=== PATIENT | female | born 1980 | race Caucasian/White ===

== ENCOUNTER 2019-08-07 07:27 | Inpatient (IN) | payer BC ==
[2019-08-07] MEDS ORDERED: Butorphanol 1 MG/ML SDV IVPUSH PRN (08:05)
[2019-08-07] MEDS ORDERED: Tranexamic Acid 1,000 MG in Sodium Chloride 0.9% 100 ML IV PRN (08:05)
[2019-08-07] MEDS ORDERED: Misoprostol 200 MCG Tab PO PRN (08:05)
[2019-08-07] MEDS ORDERED: Water For Irrigation,Sterile 1,000 ML Container IRR PRN (08:05)
[2019-08-07] MEDS ORDERED: Carboprost Tromethamine 250 MCG/1 ML Amp IM PRN (08:05)
[2019-08-07] MEDS ORDERED: Ampicillin 2 GM in Sodium Chloride 0.9% 100 ML IV ONE (08:05)
[2019-08-07] MEDS ORDERED: Sodium Chloride 0.9% 10 ML SDV IV PRN (08:05)
[2019-08-07] MEDS ORDERED: Lidocaine 1% 50 ML MDV INJECT PRN (08:05)
[2019-08-07] MEDS ORDERED: Methylergonovine 0.2 MG/1 ML Amp IM PRN (08:05)
[2019-08-07] MEDS ORDERED: Sodium Chloride 0.9% 10 ML Syringe FLUSH PRN (08:05)
[2019-08-07] MEDS ORDERED: Nalbuphine 10 MG/1 ML Vial IVPUSH PRN (08:05)
[2019-08-07] MEDS ORDERED: Sodium Chloride 0.9% 2.5 ML Syringe FLUSH PRN (08:05)
[2019-08-07] MEDS ORDERED: Oxytocin/0.9 % Sodium Chloride 30 UNIT/500 ML BAG IV SCH (08:15)
[2019-08-07] MEDS: Lactated Ringers 1,000 ML IV SCH ×2 (08:29→10:00)
[2019-08-07] MEDS ORDERED: Ropivacaine HCl/PF 100 ML ONE (09:07)
[2019-08-07] MEDS ORDERED: fentaNYL 100 MCG/2 ML SDV ONE (09:07)
--- NOTE | 2019-08-07 09:32 | PCM.PREANE ---
Preanesthetic Assessment - Anesthesia/Transfusion/Family Hx Anesthesia History: Prior Anesthesia Without Reaction Family History of Anesthesia Reaction: No Transfusion History: No Prior Transfusion(s) - Physical Assessment NPO Status Date: 08/07/19 NPO Status Time: 08:00 Height: 1.68 m Weight: 74.843 kg ASA Class: 1 - Lab Values: Laboratory Last Values WBC 11.38 K/uL (4.0-11.0) H 08/07/19 08:20 RBC 4.27 M/uL (4.30-5.90) L 08/07/19 08:20 Hgb 12.3 g/dL (12.0-16.0) 08/07/19 08:20 Hct 37.2 % (36.0-46.0) 08/07/19 08:20 MCV 87.1 fL (80.0-98.0) 08/07/19 08:20 MCH 28.8 pg (27.0-32.0) 08/07/19 08:20 MCHC 33.1 g/dL (31.0-37.0) 08/07/19 08:20 RDW Std Deviation 41.9 fl (28.0-62.0) 08/07/19 08:20 RDW Coeff of Tatyana 13 % (11.0-15.0) 08/07/19 08:20 Plt Count 224 K/uL (150-400) 08/07/19 08:20 MPV 10.80 fL (7.40-12.00) 08/07/19 08:20 Nucleated RBC % 0.0 /100WBC 08/07/19 08:20 Nucleated RBCs # 0 K/uL 08/07/19 08:20 Blood Type O POSITIVE 08/07/19 08:20 Antibody Screen NEGATIVE 08/07/19 08:20 - Allergies Allergies/Adverse Reactions: Allergies Allergy/AdvReac Type Severity Reaction Status Date / Time No Known Allergies Allergy Verified 12/25/16 03:32 - Acknowledgements Anesthesia Type Planned: Epidural Pt an Appropriate Candidate for the Planned Anesthesia: Yes Alternatives and Risks of Anesthesia Discussed w Pt/Guardian: Yes Pt/Guardian Understands and Agrees with Anesthesia Plan: Yes PreAnesthesia Questionnaire HEENT History: Reports: None Cardiovascular History: Reports: None Respiratory History: Reports: None Gastrointestinal History: Reports: Other (See Below) Other Gastrointestinal History: heartburn with Genitourinary History: Reports: None 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: Musculoskeletal History: Reports: Fracture Neurological History: Reports: None Psychiatric History: Reports: None Endocrine/Metabolic History: Reports: None Hematologic History: Reports: None Immunologic History: Reports: None Oncologic (Cancer) History: Reports: None Dermatologic History: Reports: None - Infectious Disease History Infectious Disease History: Reports: Chicken Pox, Human Papilloma Virus (HPV) - Past Surgical History HEENT Surgical History: Reports: None GI Surgical History: Reports: None Female Surgical History: Reports: Breast Biopsy Musculoskeletal Surgical History: Reports: None - SUBSTANCE USE Smoking Status *Q: Never Smoker Second Hand Smoke Exposure: No Recreational Drug Use History: No - HOME MEDS Home Medications: Home Meds Pnv No.95/Ferrous Fum/Folic AC [ Caplet] 1 tab PO DAILY 08/07/19 [ History] - CURRENT (IN HOUSE) MEDS Current Meds: Current Medications Butorphanol Tartrate (Stadol) 1 mg IVPUSH Q1H PRN PRN Reason: Pain Carboprost Tromethamine (Hemabate Ds) 250 mcg IM ASDIRECTED PRN PRN Reason: Post Hemorrhage Lactated Ringer's (Ringers, Lactated) 1,000 mls @ 150 mls/hr IV ASDIRECTED [facility] Last Admin: 08/07/19 08:29 Dose: 150 mls/hr Oxytocin/Sodium Chloride (Oxytocin 30 Unit/500 Ml-Ns) 30 unit in 500 mls @ 500 mls/hr IV TITRATE [facility] Tranexamic Acid 1,000 mg/ (Sodium Chloride) 110 mls @ 660 mls/hr IV ONETIME PRN PRN Reason: Bleeding Lidocaine HCl (Xylocaine 1%) 50 ml INJECT ONETIME PRN PRN Reason: Laceration repair Methylergonovine Maleate (Methergine) 0.2 mg IM ASDIRECTED PRN PRN Reason: Post Hemorrhage Misoprostol (Cytotec) 200 mcg PO ONETIME PRN PRN Reason: Post Hemorrhage Nalbuphine HCl (Nubain) 10 mg IVPUSH Q1H PRN PRN Reason: Pain (severe 7-10) Sodium Chloride (Saline Flush) 10 ml FLUSH ASDIRECTED PRN PRN Reason: Keep Vein Open Sodium Chloride (Saline Flush) 2.5 ml FLUSH ASDIRECTED PRN PRN Reason: Keep Vein Open Sodium Chloride (Normal Saline) 10 ml IV ASDIRECTED PRN PRN Reason: IV Use Sterile Water (Sterile Water For Irrigation) 1,000 ml IRR ASDIRECTED PRN PRN Reason: delivery Discontinued Medications Fentanyl (Sublimaze) Confirm Administered Dose 100 mcg .ROUTE .[employer] ONE Stop: 08/07/19 09:08 Ampicillin Sodium 2 gm/ Sodium (Chloride) 100 mls @ 200 mls/hr IV ONETIME ONE Stop: 08/07/19 08:34 Last Admin: 08/07/19 08:30 Dose: 200 mls/hr Ropivacaine (Naropin 0.2%) Confirm Administered Dose 100 mls @ as directed .ROUTE .[employer] ONE Stop: 08/07/19 09:08
--- NOTE | 2019-08-07 09:36 | PCM.PRNOTE ---
- Free Text/Narrative Note: Anes Note Patient requests epidural for L&D. Sitting position, Level L3-L4 midline approach. Sterile technique, clhoraprep scrube to lumbar area. Sterile fenestrated drape applied. Epidural spce easily achieved single attmept using LEVAR technique. LEVAR at 3 cm. Cath threaded 5 cm with ease. Secured at skin at 9 cm using sterile clear adhesive dressing. 0912 test 3 cc 1.5% lido with epi negative. 0917 loading doses 10 cc 0.2% ropivicaine with 1 mcg cc fentanyl in slow divided doses. 09 Pump strated with 90 cc same solution, at 8 cc hour with 6 cc q 20 min prn bolus. Michelle well. 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
[2019-08-07] MEDS ORDERED: Ampicillin 1 GM in Sodium Chloride 0.9% 50 ML IV SCH (12:45)
[2019-08-07] MEDS ORDERED: Ampicillin 1 GM AdvVial IV ONE (12:46)
[2019-08-07] MEDS ORDERED: Sodium Chloride 0.9% 50 ML ONE (12:47)
[2019-08-07] MEDS ORDERED: Lanolin 100% Cream 7 GM Tube TOP PRN (13:52)
[2019-08-07] MEDS ORDERED: oxyCODONE 5 MG Tab PO PRN (13:52)
[2019-08-07] MEDS ORDERED: Witch Hazel Medicated Pads 40/Jar TOP PRN (13:52)
[2019-08-07] MEDS ORDERED: Acetaminophen 500 MG Tab PO PRN (13:52)
[2019-08-07] MEDS ORDERED: Ibuprofen 400 MG Tab PO PRN (13:52)
[2019-08-07] MEDS ORDERED: Ibuprofen 800 MG Tab PO PRN (13:52)
[2019-08-07] MEDS ORDERED: Ondansetron 4 MG/2 ML SDV IVPUSH PRN (13:52)
[2019-08-07] MEDS ORDERED: Docusate Sodium 100 MG Cap PO PRN (13:52)
[2019-08-07] MEDS ORDERED: Benzocaine/Menthol 20%-0.5% Spray 78 GM Cannister TOP PRN (13:52)
[2019-08-07] MEDS ORDERED: Bisacodyl 10 MG Supp RECTAL PRN (13:52)
--- NOTE | 2019-08-07 14:00 | PCM.OPNOTE ---
- General Post-Op/Procedure Note Date of Surgery/Procedure: 08/07/19 Operative Procedure(s): /1st MLL repaired Findings: Viable male APGARs 9, 9 weight pending Spontaneous delivery intact placenta with 3V cord Pre Op Diagnosis: 39 week IUP. Labor Post-Op Diagnosis: Same Anesthesia Technique: Epidural Primary Surgeon: Ekta Patel EBL in mLs: 250 Complications: none known Condition: Good Free Text/Narrative:: Dictation [id number]
--- NOTE | 2019-08-07 14:59 | OR ---
SURGEON: Ekta Patel M.D. DATE OF PROCEDURE: 08/07/2019 PREOPERATIVE DIAGNOSES: 1. A 39 weeks' intrauterine . 2. Active labor. POSTOPERATIVE DIAGNOSES: 1. A 39 weeks' intrauterine . 2. Active labor. PROCEDURE: Spontaneous vaginal delivery, first-degree midline laceration repaired. PRIMARY SURGEON: Ekta Patel MD. ANESTHESIA: Epidural. ESTIMATED BLOOD LOSS: 250 mL. COMPLICATIONS: None known. FINDINGS: Viable male. scores 9 at one minute and 9 at five minutes. Weight is pending. Spontaneous delivery. Intact placenta with a 3-vessel cord. DISPOSITION: Te patient in LDRP, to nursery. PROCEDURE DETAILS: Jayna is a 39-year-old, G2, P1, at 39 weeks' gestational age who presents with regular contractions throughout the night, in the client support consultant hours. Upon initial presentation, she was found to be 4 to 5 cm, 80% effaced, and minus 2 station. Therefore, she was admitted, routine labs drawn, IV hydration was initiated. She is group B beta strep positive. Therefore, a group B beta strep prophylaxis was also initiated. Category 1 heart tones. The patient became increasingly uncomfortable, underwent regional anesthesia in the form of epidural. At that time, was found to be 6 cm. At approximately 12:45, noticed that there was some head compression with the heart rate tracing with early deceleration, and on examination, she was found to be complete, 100% effaced, 0 station. Membranes did not appear to be intact at that time Guestimating they ruptured somewhere between 10:30 and 11:30 a.m. The patient then began pushing efforts, pushed effectively to a +2 station. I was called for delivery. Upon my arrival, the patient placed in modified dorsal lithotomy position, was prepped and draped in the usual aseptic manner. Continued with pushing efforts, pushed readily to a +4 station. I was able deliver infant's head atraumatically spontaneously, followed by anterior shoulder, posterior shoulder, and remainder of body. The infant's oropharynx and nares were bulb suctioned. Infant was handed off to his mother with attending nursing staff at the side. After a delay, cord was clamped x2 and cut. Cord arterial, cord venous, cord blood sampling obtained. Light pressure was applied while the placenta was delivered spontaneously intact. Vigorous fundal uterine massage was then applied while 30 units of Pitocin was delivered in 500 mL of IV fluid. Upon inspection of cervix, vaginal sidewalls, and perineum, there was found to be a first-degree midline laceration, repaired using 3-0 Vicryl in the usual fashion. Upon inspection of cervix, vaginal sidewalls, perineum, these were found to be intact. The patient had tolerated the procedure well overall. She will remain in LDRP in stable condition, infant to nursery. KRISTINA / LUIS ALBERTO /[id number] STAN
[2019-08-07] MEDS: Acetaminophen 500 MG Tab PO PRN (20:16)
[2019-08-08] MEDS: Acetaminophen 500 MG Tab PO PRN ×2 (06:33→10:06)
--- NOTE | 2019-08-08 07:49 | PCM.PNPP ---
- General Info Date of Service: 08/08/19 Functional Status: Reports: Pain Controlled, Tolerating Diet, Ambulating, Urinating - Review of Systems General: Reports: No Symptoms HEENT: Reports: No Symptoms Pulmonary: Reports: No Symptoms Cardiovascular: Reports: No Symptoms Gastrointestinal: Reports: No Symptoms Genitourinary: Reports: No Symptoms Musculoskeletal: Reports: No Symptoms Skin: Reports: No Symptoms Neurological: Reports: No Symptoms Psychiatric: Reports: No Symptoms - General Info Date of Service: 08/08/19 - Patient Data Vital Signs - Most Recent: Last Vital Signs Temp 36.2 C 08/08/19 04:21 Pulse 61 08/08/19 04:21 Resp 16 08/08/19 04:21 BP 100/61 08/08/19 04:21 Pulse Ox 96 08/08/19 04:21 Weight - Most Recent: 74.843 kg Lab Results - Last 24 Hours: Laboratory Results - last 24 hr 08/07/19 08/07/19 08/07/19 Range/Units 08:20 08:20 13:34 WBC 11.38 H (4.0-11.0) K/uL RBC 4.27 L (4.30-5.90) M/uL Hgb 12.3 (12.0-16.0) g/dL Hct 37.2 (36.0-46.0) % MCV 87.1 (80.0-98.0) fL MCH 28.8 (27.0-32.0) pg MCHC 33.1 (31.0-37.0) g/dL RDW Std Deviation 41.9 (28.0-62.0) fl RDW Coeff of Tatyana 13 (11.0-15.0) % Plt Count 224 (150-400) K/uL MPV 10.80 (7.40-12.00) fL Nucleated RBC % 0.0 /100WBC Nucleated RBCs # 0 K/uL Cord ABG pH 7.301 (7.18-7.38) Cord ABG Base Excess -4 (-10--2) Cord VBG pH 7.330 (7.25-7.45) Cord VBG Base Excess -3 (-10--2) Blood Type O POSITIVE Antibody Screen NEGATIVE 08/08/19 Range/Units 05:50 WBC (4.0-11.0) K/uL RBC (4.30-5.90) M/uL Hgb 11.2 L (12.0-16.0) g/dL Hct 34.6 L (36.0-46.0) % MCV (80.0-98.0) fL MCH (27.0-32.0) pg MCHC (31.0-37.0) g/dL RDW Std Deviation (28.0-62.0) fl RDW Coeff of Tatyana (11.0-15.0) % Plt Count (150-400) K/uL MPV (7.40-12.00) fL Nucleated RBC % /100WBC Nucleated RBCs # K/uL Cord ABG pH (7.18-7.38) Cord ABG Base Excess (-10--2) Cord VBG pH (7.25-7.45) Cord VBG Base Excess (-10--2) Blood Type Antibody Screen Med Orders - Current: Current Medications Acetaminophen (Tylenol Extra Strength) 500 mg PO Q4H PRN PRN Reason: Pain Last Admin: 08/08/19 06:33 Dose: 500 mg Acetaminophen (Tylenol Extra Strength) 1,000 mg PO Q4H PRN PRN Reason: Pain Benzocaine/Menthol (Dermoplast Pain Relief 20%-0.5% [place]) 78 gm TOP ASDIRECTED PRN PRN Reason: Perineal Comfort Measure Bisacodyl (Dulcolax) 10 mg RECTAL ONETIME PRN PRN Reason: Constipation Carboprost Tromethamine (Hemabate Ds) 250 mcg IM ASDIRECTED PRN PRN Reason: Post Hemorrhage Docusate Sodium (Colace) 100 mg PO BID PRN PRN Reason: Constipation Emollient Ointment (Lansinoh Hpa) 0 gm TOP ASDIRECTED PRN PRN Reason: Sore Nipples Lactated Ringer's (Ringers, Lactated) 1,000 mls @ 150 mls/hr IV ASDIRECTED DANIEL Last Admin: 08/07/19 10:00 Dose: 150 mls/hr Oxytocin/Sodium Chloride (Oxytocin 30 Unit/500 Ml-Ns) 30 unit in 500 mls @ 500 mls/hr IV TITRATE DANIEL Tranexamic Acid 1,000 mg/ (Sodium Chloride) 110 mls @ 660 mls/hr IV ONETIME PRN PRN Reason: Bleeding Ibuprofen (Motrin) 400 mg PO Q4H PRN PRN Reason: Pain Ibuprofen (Motrin) 800 mg PO Q6H PRN PRN Reason: Pain Lidocaine HCl (Xylocaine 1%) 50 ml INJECT ONETIME PRN PRN Reason: Laceration repair Methylergonovine Maleate (Methergine) 0.2 mg IM ASDIRECTED PRN PRN Reason: Post Hemorrhage Ondansetron HCl (Zofran) 4 mg IVPUSH Q6H PRN PRN Reason: Nausea/Vomiting Oxycodone HCl (Oxycodone) 5 mg PO Q2H PRN PRN Reason: Pain Sodium Chloride (Saline Flush) 10 ml FLUSH ASDIRECTED PRN PRN Reason: Keep Vein Open Sodium Chloride (Saline Flush) 2.5 ml FLUSH ASDIRECTED PRN PRN Reason: Keep Vein Open Sodium Chloride (Normal Saline) 10 ml IV ASDIRECTED PRN PRN Reason: IV Use Sterile Water (Sterile Water For Irrigation) 1,000 ml IRR ASDIRECTED PRN PRN Reason: delivery Witch Rosamaria (Tucks) 1 pad TOP ASDIRECTED PRN PRN Reason: comfort care Discontinued Medications Ampicillin Sodium (Ampicillin) Confirm Administered Dose 1 gm IV .STK-MED ONE Stop: 08/07/19 12:47 Butorphanol Tartrate (Stadol) 1 mg IVPUSH Q1H PRN PRN Reason: Pain Fentanyl (Sublimaze) Confirm Administered Dose 100 mcg .ROUTE .STK-[employer] ONE Stop: 08/07/19 09:08 Ampicillin Sodium 2 gm/ Sodium (Chloride) 100 mls @ 200 mls/hr IV ONETIME ONE Stop: 08/07/19 08:34 Last Admin: 08/07/19 08:30 Dose: 200 mls/hr Ropivacaine (Naropin 0.2%) Confirm Administered Dose 100 mls @ as directed .ROUTE .STK-MED ONE Stop: 08/07/19 09:08 Ampicillin Sodium 1 gm/ Sodium (Chloride) 50 mls @ 100 mls/hr IV Q4H DANIEL Last Admin: 08/07/19 12:45 Dose: 100 mls/hr Sodium Chloride (Normal Saline) Confirm Administered Dose 50 mls @ as directed .ROUTE .STK-MED ONE Stop: 08/07/19 12:48 Misoprostol (Cytotec) 200 mcg PO ONETIME PRN PRN Reason: Post Hemorrhage Nalbuphine HCl (Nubain) 10 mg IVPUSH Q1H PRN PRN Reason: Pain (severe 7-10) - Interaction Support Person: - Recovery Exam Fundal Tone: Firm Fundal Level: At Umbilicus Fundal Placement: Midline Lochia Amount: Scant Lochia Color: Rubra/Red Perineum Description: Intact, Minimal Bruising/Swelling Episiotomy/Laceration: Approximated Bladder Status: Voiding - Exam General: Alert HEENT: Pupils Equal Neck: Supple Lungs: Clear to Auscultation, Normal Respiratory Effort Cardiovascular: Regular Rate, Regular Rhythm GI/Abdominal Exam: Normal Bowel Sounds Neurological: No New Focal Deficit Psy/Mental Status: Alert - Problem List & Annotations (1) Vaginal delivery SNOMED Code(s): 443530393 Code(s): O80 - ENCOUNTER FOR FULL-TERM UNCOMPLICATED DELIVERY Status: Acute Current Visit: No - Problem List Review Problem List Initiated/Reviewed/Updated: Yes - Assessment Assessment:: 39yo s/p PPD 1 , - Plan Plan:: Discharge home Routine
--- NOTE | 2019-08-08 08:57 | PCM48HPAN ---
Post Anesthesia Note - EVALUATION WITHIN 48HRS OF ANESTHETIC Vital Signs in Normal Range: Yes Patient Participated in Evaluation: Yes Respiratory Function Stable: Yes Airway Patent: Yes Cardiovascular Function Stable: Yes Hydration Status Stable: Yes Pain Control Satisfactory: Yes Nausea and Vomiting Control Satisfactory: Yes Mental Status Recovered: Yes Vital Signs: Last Vital Signs Temp 36.2 C 08/08/19 04:21 Pulse 61 08/08/19 04:21 Resp 16 08/08/19 04:21 BP 100/61 08/08/19 04:21 Pulse Ox 96 08/08/19 04:21
[2019-08-08 10:33] VITALS: BP 114/54; PULSE 75
== END 2019-08-08 16:20 | disposition home or self-care (01) | DRG 560 ==
LOC: MW.OBCHECK 07:27 → MW.OB 07:29 → OBSVTOIN 13:34 → MW.OBCHECK 13:59 → MW.OB 17:14
PROVIDERS: ADMIT Obstetrics & Gynecology; ATTEND Obstetrics & Gynecology
PROC: 10E0XZZ Delivery of Products of Conception, External Approach (ICD-10-PCS; principal; 2019-08-07)
PROC: 0HQ9XZZ Repair Perineum Skin, External Approach (ICD-10-PCS; 2019-08-07)
PROC: 3E0R3BZ Introduction of Anesthetic Agent into Spinal Canal, Percutaneous Approach (ICD-10-PCS; 2019-08-07)
PROC: 30233N1 Transfusion of Nonautologous Red Blood Cells into Peripheral Vein, Percutaneous Approach (ICD-10-PCS; 2019-08-07)
DX: O99.824 Streptococcus B carrier state complicating childbirth (principal); O70.0 First degree perineal laceration during delivery; Z3A.39 39 weeks gestation of pregnancy; Z37.0 Single live birth
CPT/HCPCS: 01967; 36415; 51702; 59025; 59409; 82803; 85014; 85018; 85027; 86593; 86850; 86900; 86901; A9270-GY; J0290; J2795; J3010; J7050; J7120

== ENCOUNTER 2022-06-23 05:54 | Inpatient (IN) | payer BC ==
[2022-06-23] MEDS ORDERED: Carboprost Tromethamine 250 MCG/1 ML Amp IM PRN (06:37)
[2022-06-23] MEDS ORDERED: Sodium Chloride 0.9% 2.5 ML Syringe FLUSH PRN (06:37)
[2022-06-23] MEDS ORDERED: Lidocaine 1% 50 ML MDV INJECT PRN (06:37)
[2022-06-23] MEDS ORDERED: Methylergonovine 0.2 MG/1 ML Amp IM PRN (06:37)
[2022-06-23] MEDS ORDERED: Water For Irrigation,Sterile 1,000 ML Container IRR PRN (06:37)
[2022-06-23] MEDS ORDERED: Sodium Chloride 0.9% 10 ML Syringe FLUSH PRN (06:37)
[2022-06-23] MEDS ORDERED: Misoprostol 200 MCG Tab PO PRN (06:37)
[2022-06-23] MEDS ORDERED: Tranexamic Acid 1,000 MG in Sodium Chloride 0.9% 100 ML IV PRN (06:37)
[2022-06-23] MEDS ORDERED: Butorphanol 1 MG/ML SDV IVPUSH PRN (06:37)
[2022-06-23] MEDS ORDERED: Ondansetron 4 MG/2 ML SDV IVPUSH PRN (06:37)
[2022-06-23] MEDS ORDERED: Sodium Chloride 0.9% 20 ML SDV IV PRN (06:37)
[2022-06-23] MEDS ORDERED: Oxytocin/0.9 % Sodium Chloride 30 UNIT/500 ML BAG IV SCH (06:45)
[2022-06-23] MEDS ORDERED: Ampicillin 2 GM in Sodium Chloride 0.9% 100 ML IV ONE (07:00)
[2022-06-23] MEDS: Lactated Ringers 1,000 ML IV SCH ×2 (07:00→12:48)
[2022-06-23] MEDS ORDERED: ePHEDrine 50 MG/ML SDV IVPUSH PRN ×2 (08:52)
[2022-06-23] MEDS ORDERED: Phenylephrine HCl In 0.9% NaCl 1 MG/10 ML Vial IVPUSH PRN (08:52)
[2022-06-23] MEDS ORDERED: Ropivacaine HCl/PF 400 MG in Premix Bag 1 BAG EPIDUR SCH (09:00)
[2022-06-23] MEDS ORDERED: Phenylephrine HCl In 0.9% NaCl 1 MG/10 ML Vial IVPUSH SCH (09:00)
[2022-06-23] MEDS ORDERED: Ampicillin 1 GM in Sodium Chloride 0.9% 50 ML IV SCH (11:00)
[2022-06-23] MEDS ORDERED: Lanolin 100% Cream 7 GM Tube TOP PRN (15:19)
[2022-06-23] MEDS ORDERED: Ibuprofen 400 MG Tab PO PRN (15:19)
[2022-06-23] MEDS ORDERED: Acetaminophen 500 MG Tab PO PRN (15:19)
[2022-06-23] MEDS ORDERED: oxyCODONE 5 MG Tab PO PRN (15:19)
[2022-06-23] MEDS ORDERED: Witch Hazel Medicated Pads 40/Jar TOP PRN (15:19)
[2022-06-23] MEDS ORDERED: Benzocaine/Menthol 20%-0.5% Spray 78 GM Cannister TOP PRN (15:19)
[2022-06-23] MEDS ORDERED: Docusate Sodium 100 MG Cap PO PRN (15:19)
[2022-06-23] MEDS ORDERED: Bisacodyl 10 MG Supp RECTAL PRN (15:19)
[2022-06-24] MEDS: Ibuprofen 800 MG Tab PO PRN ×2 (08:05→15:50)
[2022-06-24] MEDS: Acetaminophen 500 MG Tab PO PRN ×2 (08:09→15:47)
[2022-06-24 16:04] VITALS: BP 109/65; PULSE 76
== END 2022-06-24 19:25 | disposition home or self-care (01) | DRG 560 ==
LOC: MW.OBCHECK 05:54 → MW.OB 05:55 → MW.OBCHECK 06:37 → OBSVTOIN 14:59 → MW.OB 21:17
PROVIDERS: ADMIT Obstetrics & Gynecology; ATTEND Obstetrics & Gynecology
PROC: 10E0XZZ Delivery of Products of Conception, External Approach (ICD-10-PCS; principal; 2022-06-23)
PROC: 10907ZC Drainage of Amniotic Fluid, Therapeutic from Products of Conception, Via Natural or Artificial Opening (ICD-10-PCS; 2022-06-23)
PROC: 3E0R3BZ Introduction of Anesthetic Agent into Spinal Canal, Percutaneous Approach (ICD-10-PCS; 2022-06-23)
PROC: 00HU33Z Insertion of Infusion Device into Spinal Canal, Percutaneous Approach (ICD-10-PCS; 2022-06-23)
DX: O99.824 Streptococcus B carrier state complicating childbirth (principal); Z37.0 Single live birth; Z3A.39 39 weeks gestation of pregnancy; Z20.822 Contact with and (suspected) exposure to COVID-19; Z86.16 Personal history of COVID-19
CPT/HCPCS: 01967; 36415; 51702; 59025; 59409; 82803; 85014; 85018; 85027; 86592; 86850; 86900; 86901; A9270-GY; J0290; J2590; J7120; U0002